=== PATIENT | female | born 1995 | race Hispanic/Latino ===

== ENCOUNTER 2022-12-08 11:43 | Inpatient (IN) | payer SELFPAY ==
--- OUTSIDE RECORDS SUMMARY | 2022-12-08 11:46 | XMS REPORT | Continuity of Care Document ---
:1995 Author Organization [facility] t Address [address] [place] [address] [place] [id number] Care Team Providers Name Role Phone Unavailable Unavailable Unavailable Problems This patient has no known problems. Allergies, Adverse Reactions, Alerts This patient has no known allergies or adverse reactions. Medications This patient has no known medications. Procedures This patient has no known procedures. Encounters Start End Encounter Admission Attending Care Care Encounter Source Date/Time Date/Time Type Type Clinicians Facility Department ID 2022-12-05 2022-12-05 Outpatient MARK FLORES [id number] [place] 13:16:01 13:16:01 [id number] [address] [place] Results This patient has no known results.
[2022-12-08 12:17] LABS: Absolute Lymphocytes (CBC) 1.1 K/uL (0.7-4.9); Hematocrit 47.5 % (36.0-45.0); Lymphocytes % 14.9 % (15.3-44.8); MPV 8.3 fL (7.6-11.3)
[2022-12-08 12:32] LABS: Potassium 3.5 mEq/L (3.5-5.1)
--- NOTE | 2022-12-08 12:39 | RAD REPORT ---
EXAM DESCRIPTION: Guzman Single View12/08/2022 12:34 pm CLINICAL HISTORY: cough, sob, fever COMPARISON: No comparisons TECHNIQUE: Portable AP view of the chest. FINDINGS: Hazy increased density throughout the right mid to lower lung. This could relate to mild c ongestion/ edema versus superimposition of soft tissues. The lungs show no focal airspace opacity oth erwise. No pneumothorax or effusion. The cardiomediastinal contours are unremarkable. IMPRESSION: Hazy increased density throughout the right mid to lower lung as above.
[2022-12-08 12:58] LABS: SARS-CoV-2 Antigen Rapid Res Positive (Negative)
[2022-12-08] MEDS ORDERED: DIAZEPAM 5 MG TABLET ONE (13:15)
[2022-12-08] MEDS ORDERED: NA CHLORIDE 0.9% 1,000 ML ONE (13:15)
--- NOTE | 2022-12-08 13:19 | RAD REPORT ---
EXAM DESCRIPTION: CT - Chest For Pe Angio - 12/08/2022 1:01 pm CLINICAL HISTORY: sob COMPARISON: None. TECHNIQUE: Dynamically enhanced axial 3 mm thick images of the chest were obtained during administra tion of 100 mL Isovue 370 IV contrast. Coronal and oblique reconstruction images were generated and r eviewed. Exam utilizes a protocol for optimal evaluation of pulmonary arterial tree. Maximum intensity projections 3D imaging was utilized All CT scans are performed using dose optimization technique as appropriate and may include automated exposure control or mA/KV adjustment according to patient size. FINDINGS: A pulmonary embolus is not seen. A thoracic aortic aneurysm is not noted. A pleural effusion is not seen. A pericardial effusion is not seen. A lung consolidation is not present. Prominent left lobe liver IMPRESSION: Negative for a pulmonary embolism.
[2022-12-08 13:22] LABS: Albumin 4.2 g/dL (3.4-5.0); Bilirubin Direct 0.2 mg/dL (0-0.2); Bilirubin Indirect, Calculated 0.3 mg/dL (0.2-0.8); Bilirubin Total 0.5 mg/dL (0.2-1.0); Protein, Total 9.1 g/dL (6.4-8.2)
[2022-12-08 13:39] LABS: Specific Gravity > 1.030 (1.005-1.030)
[2022-12-08 13:46] LABS: Calcium Oxalate Crystals- Ur Moderate /HPF (None Seen); Specific Gravity > 1.030 (1.005-1.030); Urine Bacteria 20-50 /HPF (<20); Urine Bilirubin NEGATIVE (Negative); Urine Blood Trace (Negative); Urine Clarity Extremely Turbid (Clear); Urine Color Dark-Yellow (Yellow); Urine Glucose TRACE (Negative); Urine Mucus 4+ /HPF (None Seen); Urine Protein 2+ (Negative); Urine Urobilinogen 1+ (Normal); Urine pH 5.5 (5.0-7.0)
[2022-12-08] MEDS ORDERED: LEVALBUTEROL 1.25 MG/3 ML NEB ONE (14:47)
--- NOTE | 2022-12-08 14:51 | RAD REPORT ---
EXAM DESCRIPTION: US - Abdomen Exam Limited - 12/08/2022 2:42 pm CLINICAL HISTORY: Abdominal pain. COMPARISON: None. FINDINGS: The gallbladder wall is not thickened. A gallstone is not seen. The biliary tree is normal caliber. IMPRESSION: Unremarkable gallbladder ultrasound.
[2022-12-08] MEDS ORDERED: METHYLPREDNISOLONE 125 MG INJ ONE (15:18)
--- NOTE | 2022-12-08 15:50 | ER ---
Nurse's Notes [facility] Name: Edith Pickard Age: 27 yrs Sex: Female : 1995 Arrival Date: 12/08/2022 Time: 11:43 Bed 12 Private MD: Diagnosis: Coronavirus infection, unspecified;Dyspnea Presentation: 12/08 11:54 Chief complaint: Patient states: "I was diagnosed with Bronchitis and I was supposed to ss go back to work today, but I'm still having shortness of breath, diarrhea and vomiting. I want to get tested for covid.". Coronavirus screen: Client denies travel out of the [place] in the last 14 days. Ebola Screen: Patient denies exposure to infectious person. Patient denies travel to an Ebola-affected area in the 21 days before illness onset. Initial Sepsis Screen: Does the patient meet any 2 criteria? No. Patient's initial sepsis screen is negative. Does the patient have a suspected source of infection? No. Patient's initial sepsis screen is negative. Risk Assessment: Do you want to hurt yourself or someone else? Patient reports no desire to harm self or others. Onset of symptoms was December 04, 2022. 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 - mb9 Historical: - Allergies: 11:58 No Known Allergies; ss - Home Meds: 11:58 Cipro Oral [Active]; - PMHx: 11:58 I\\T\\D L breast; Screenin:42 [facility] ED Fall Risk Assessment (Adult) History of falling in the last 3 months, mb9 including since admission No falls in past 3 months (0 pts) Confusion or Disorientation No (0 pts) Intoxicated or Sedated No (0 pts) Impaired Gait No (0 pts) Mobility Assist Device Used No (0 pt) Altered Elimination No (0 pt) Score/Fall Risk Level 0 - 2 = Low Risk Oriented to surroundings, Maintained a safe environment, Educated pt \\T\\ family on fall prevention, incl call for assistance when getting out of bed. Abuse screen: Denies threats or abuse. Nutritional screening: No deficits noted. Tuberculosis screening: No symptoms or risk factors identified. Assessment: 13:41 General: Appears in no apparent distress. Behavior is calm, cooperative. Pain: Denies mb9 pain. Neuro: Level of Consciousness is awake, alert, obeys commands, Oriented to person, place, time, situation, Appropriate for age. Respiratory: Reports shortness of breath cough that is Breath sounds are clear bilaterally. GI: Reports diarrhea. GI: Abdomen is round non-distended, Bowel sounds present X 4 quads. Abd is soft and non tender X 4 quads. Derm: Skin is pink, warm \\T\\ dry. Musculoskeletal: Range of motion: intact in all extremities. 15:41 Reassessment: pt not able to tolerate ambulating. Pt states" I feel SOB and can't catch mb9 my breath." O2 saturation at 95% on RA. 16:25 Reassessment: see [facility] for further charting. mb9 Vital Signs: 11:54 BP 154 / 88; Pulse 106; Resp 18; Temp 98(TE); Pulse Ox 100% on R/A; Weight 99.79 kg; ss Height 5 ft. 2 in. ; Pain 6/10; 14:24 BP 96 / 85; Pulse 84; Resp 18; Pulse Ox 97% on R/A; mb9 15:41 BP 118 / 95; Pulse 95; Resp 22; Pulse Ox 95% on R/A; mb9 11:54 Body Mass Index 40.24 (99.79 kg, 157.48 cm) ss 11:54 Pain Scale: Adult ss ED Course: 11:44 Patient arrived in ED. rg4 11:47 [facility] 11:47 Valerio Muir MD is Attending Physician. [facility] 11:56 Triage completed. ss 11:58 Arm band placed on right wrist. ss 12:12 Inserted saline lock: 20 gauge in left antecubital area, using aseptic technique. Blood rs5 collected. 12:12 Lactate w/ 2H reflex if indic. Sent. rs5 12:12 BMP Sent. rs5 12:12 CBC with Diff Sent. rs5 12:28 SARS RAPID Sent. rs5 12:28 Lactate w/ 2H reflex if indic. Sent. rs5 12:28 Blood Culture Adult (2) Sent. rs5 12:36 Chest Single View XRAY In Process Unspecified. EDMS 12:57 Anabella Nevarez, ASHISH is Primary Nurse. mb9 13:02 CT Chest For PE Angio In Process Unspecified. EDMS 13:42 Bed in low position. Call light in reach. Side rails up X 1. Client placed on mb9 continuous cardiac and pulse oximetry monitoring. NIBP monitoring applied. 13:43 No provider procedures requiring assistance completed. mb9 14:43 US Abdomen Limited In Process Unspecified. EDMS 15:25 Blood Culture Adult (2) Sent. rs5 15:49 Jayme Grewal MD is Hospitalizing Provider. m 17:03 Patient admitted, IV remains in place. mb9 Administered Medications: 13:10 Drug: NS 0.9% IV 1000 ml Route: IV; Rate: 1 bolus; Site: left antecubital; ll1 14:43 Drug: Levalbuterol Inhalation 1.25 mg Route: Inhalation; mb9 15:13 Follow up: Response: No adverse reaction mb9 15:13 Drug: MethylPrednisoLONE IVP 125 mg Route: IVP; Site: left antecubital; mb9 15:41 Follow up: Response: No adverse reaction mb9 16:25 Drug: Paxlovid Dose Pack 300 mg (150 mg x 2)-100 mg (EUA) 300 mg Route: PO; mb9 16:57 Follow up: Response: No adverse reaction mb9 Medication: 13:42 VIS not applicable for this client. mb9 Outcome: 15:49 Decision to Hospitalize by Provider. [facility] 17:03 Admitted to Med/surg via wheelchair, room 222, with chart, Report called to ASHISH Jeffrey mb9 17:03 Condition: stable 17:03 Instructed on the need for admit. 17:15 Patient left the ED. ll1 Signatures: Dispatcher [employer] EDMS Oscar Michelle PA PA jmm Blanchard, Shelby RN Yolis Garza rg4 Darleen Diaz RN RN ll1 Anabella Nevarez RN RN mb9 Isreal Jung rs5 Corrections: (The following items were deleted from the chart) 15:46 15:41 Pulse 95bpm; Resp 22bpm; Pulse Ox 95% RA; mb9 mb9
[2022-12-08] MEDS ORDERED: ONDANSETRON 4 MG/2 ML VIAL IV PRN (15:51)
--- NOTE | 2022-12-08 15:51 | EDPHYS ---
Physician Documentation [facility] Name: Edith Pickard Age: 27 yrs Sex: Female : 1995 Arrival Date: 12/08/2022 Time: 11:43 Bed 12 Private MD: ED Physician Valerio Muir HPI: 12/08 11:53 This 27 yrs old Female presents to ER via Ambulatory with complaints of jmm Diarrhea, Shortness Of Breath. 11:53 The patient presents to the emergency department with nausea, vomiting, diarrhea. jmm Onset: The symptoms/episode began/occurred gradually, 1 week(s) ago. Is a 27-year-old female with no chronic medical conditions presents emerged department with complaints of nausea and vomiting beginning approximately a week ago. That is resolved but since states having increased shortness of breath. Patient was diagnosed with bronchitis this past Sunday. States today that she is unable to walk more than a few feet without becoming very short of breath.. 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 jmm 11:53 Respiratory: Positive for cough, shortness of breath. 11:53 Abdomen/GI: Positive for vomiting, diarrhea. 11:53 All other systems are negative. Exam: 11:53 Constitutional: This is a well developed, well nourished patient who is awake, alert, jmm and in no acute distress. Head/Face: atraumatic. Eyes: EOMI, no conjunctival erythema appreciated ENT: Moist Mucus Membranes Neck: Trachea midline, Supple Chest/axilla: Normal chest wall appearance and motion. Cardiovascular: Regular rate and rhythm. No edema appreciated Respiratory: Normal respirations, no respiratory distress appreciated Abdomen/GI: Non distended Back: Normal ROM Skin: General appearance color normal MS/ Extremity: Moves all extremities, no obvious deformities appreciated, no edema noted to the lower extremities Neuro: Awake and alert Psych: Behavior is normal, Mood is normal, Patient is cooperative and pleasant Vital Signs: 11:54 BP 154 / 88; Pulse 106; Resp 18; Temp 98(TE); Pulse Ox 100% on R/A; Weight 99.79 kg; ss Height 5 ft. 2 in. ; Pain 6/10; 14:24 BP 96 / 85; Pulse 84; Resp 18; Pulse Ox 97% on R/A; mb9 15:41 BP 118 / 95; Pulse 95; Resp 22; Pulse Ox 95% on R/A; mb9 11:54 Body Mass Index 40.24 (99.79 kg, 157.48 cm) ss 11:54 Pain Scale: Adult ss MDM: 11:53 Patient medically screened. [facility] 18:02 Differential diagnosis: Pulmonary embolism, coronavirus, viral pneumonia, bacterial [facility] pneumonia. Data reviewed: vital signs, nurses notes, lab test result(s), radiologic studies, CT scan, plain films. Consideration of Admission/Observation Patient was admitted/placed on observation. Escalation of care including admission/observation considered. Management of patient was discussed with the following: Hospitalist: Dr. Estrada. Counseling: I had a detailed discussion with the patient and/or guardian regarding: the historical points, exam findings, and any diagnostic results supporting the discharge/admit diagnosis, lab results, radiology results, the need for further work-up and treatment in the hospital. ED course: Patient exhibited dyspnea on exertion while ambulating oxygen went down to 93%. We will ops the patient due to worsening coronavirus symptoms. 12/08 11:54 Order name: CBC with Diff; Complete Time: 12:20 [facility] 12/08 11:54 Order name: BMP; Complete Time: 12:34 [facility] 12/08 11:54 Order name: Blood Culture Adult (2) [facility] 12/08 11:54 Order name: Lactate w/ 2H reflex if indic.; Complete Time: 13:21 [facility] 12/08 11:54 Order name: SARS RAPID; Complete Time: 13:00 [facility] 12/08 13:00 Order name: PT-INR [facility] 12/08 13:00 Order name: Hepatic Function; Complete Time: 14:13 [facility] 12/08 13:05 Order name: Urinalysis w/ reflexes; Complete Time: 14:13 [facility] 12/08 13:05 Order name: PREGU; Complete Time: 14:13 [facility] 12/08 15:38 Order name: Lactate Sepsis 2 HR Follow-up; Complete Time: 15:40 [facility] 12/08 15:58 Order name: CBC with Automated Diff EDMS 12/08 15:58 Order name: CBC with Automated Diff [facility] 12/08 15:58 Order name: Comprehensive Metabolic Panel [facility] 12/08 15:58 Order name: Comprehensive Metabolic Panel [facility] 12/08 11:54 Order name: Chest Single View XRAY; Complete Time: 12:42 [facility] 12/08 12:43 Order name: CT Chest For PE Angio; Complete Time: 13:21 [facility] 12/08 14:14 Order name: US Abdomen Limited; Complete Time: 14:55 [facility] 12/08 15:44 Order name: Diet Full Liquid; Complete Time: 15:45 [facility] 12/08 15:58 Order name: Regular [facility] 12/08 11:54 Order name: Saline Lock; Complete Time: 12:12 [facility] 12/08 15:01 Order name: Misc. Order: ambulate patient, o2; Complete Time: 15:41 [facility] Administered Medications: 13:10 Drug: NS 0.9% IV 1000 ml Route: IV; Rate: 1 bolus; Site: left antecubital; ll1 14:43 Drug: Levalbuterol Inhalation 1.25 mg Route: Inhalation; mb9 15:13 Follow up: Response: No adverse reaction mb9 15:13 Drug: MethylPrednisoLONE IVP 125 mg Route: IVP; Site: left antecubital; mb9 15:41 Follow up: Response: No adverse reaction mb9 16:25 Drug: Paxlovid Dose Pack 300 mg (150 mg x 2)-100 mg (EUA) 300 mg Route: PO; mb9 16:57 Follow up: Response: No adverse reaction mb9 Disposition Summary: 12/08/22 15:49 Hospitalization Ordered Hospitalization Status: Observation [facility] Provider: Jayme Grewal Location: Telemetry/MedSurg (observation) jmm Condition: Stable jmm Problem: new jmm Symptoms: are unchanged [facility] Bed/Room Type: Standard [facility] Room Assignment: 222(12/08/22 16:55) dw Diagnosis - Coronavirus infection, unspecified jmm - Dyspnea jmm Forms: - Medication Reconciliation Form jmm - SBAR form [facility] Signatures: Dispatcher [employer] EDCT Brooklyn Wade RN RN Oscar Martin PA PA jmm Blanchard, Shelby, RN RN ss Darleen Diaz RN RN ll1 Anabella Nevarez RN RN mb9 Corrections: (The following items were deleted from the chart) 16:55 15:49 irving diehl
[2022-12-08] MEDS: NA CHLORIDE 0.9% 1,000 ML IV SCH ×2 (16:00→18:06)
[2022-12-08] MEDS: NIRMATRELVIR/RITONAVIR TABLET PO SCH (16:15)
--- NOTE | 2022-12-08 17:14 | P.HP ---
Certification for Inpatient Patient admitted to: Observation With expected LOS: <2 Midnights Practitioner: I am a practitioner with admitting privileges, knowledge of patient current condition, hospital course, and medical plan of care. Services: Services provided to patient in accordance with Admission requirements found in Title 42 Section 412.3 of the Code of Federal Regulations Patient History Date of Service: 12/08/22 Reason for admission: Michael Virus infection History of Present Illness: Patient is 27 years of age became sick on Sunday started having fever chills bod y aches and shortness of breath able to work she went to the urgent care department and was given some antibiotics diagnosed with bronchitis exertion ended up here in the hospital Allergies No Known Allergies Allergy (Unverified 12/08/22 16:55) - Past Medical/Surgical History Past Medical History: Patient denies medical history Past Surgical History: Patient denies surgical history Review of Systems General: Fever, Chills, Weakness Respiratory: Shortness of Breath Gastrointestinal: Vomiting Physical Examination - Vital Signs Temperature: 98 F Blood Pressure: 154/88 Pulse: 106 Respirations: 18 Pulse Ox (%): 98 - Physical Exam General: Alert, In no apparent distress, Oriented x3 Neck: Supple Respiratory: Clear to auscultation bilaterally Cardiovascular: No edema, Regular rate/rhythm, Normal S1 S2 Gastrointestinal: Normal bowel sounds, Non-distended Musculoskeletal: No clubbing, No swelling, No contractures - Studies Laboratory Data (last 24 hrs) 12/08/22 12:07: Total Bilirubin 0.5, AST 334 H, ALT 252 H, Alkaline Phosphatase 79 12/08/22 12:07: Sodium 137, Potassium 3.5, BUN 10, Creatinine 0.96, Glucose 111 H 12/08/22 12:07: WBC 7.30, Hgb 16.1 H, Hct 47.5 H, Plt Count 238 Assessment and Plan - Problems (Diagnosis) (1) Coronavirus infection, unspecified Current Visit: Yes Status: Acute Plan: Patient is 27 years of age has been sick since Sunday complaining of fever chills body ache nausea vomiting work-up is essentially negative she does seem to have a mild hepatitis globin is mildly elevated is probably little dehydrated. There is no evidence of thromboembolism she is positive for coronavirus infection plan to start her on some steroids Paxlovid IV hydration abdominal ultrasound is also negative we will check a hepatitis profile chest x- ray unable to view report suggest some haziness there is no evidence of any pneumonia on her CT angiogram (2) Hepatitis Current Visit: Yes Status: Acute - Plan Patient has abnormal liver function tests monitor liver function test may be related to the acute viral infection have also ordered a hepatitis panel - Advance Directives Does patient have a Living Will: No Does patient have a Durable POA for Healthcare: No
[2022-12-08] MEDS ORDERED: ACETAMINOPHEN 325 MG TABLET PO PRN (17:17)
[2022-12-08] MEDS: ENOXAPARIN 40 MG/0.4 ML SQ SCH (18:05)
[2022-12-08 18:16] VITALS: BMI 39.4
[2022-12-08] MEDS: IPRATROPIUM BROM 0.5MG/2.5ML NEB SCH (19:55)
[2022-12-08] MEDS: dexAMETHasone 4 MG/ML VIAL IV SCH (20:26)
[2022-12-08 20:52] LABS: Protime INR 0.91
[2022-12-08 21:49] LABS: Hepatitis B Core IgM Nonreactive (Nonreactive); Hepatitis B surface AG Interp. Nonreactive (Nonreactive); Hepatitis C Virus Ab Nonreactive (Nonreactive)
[2022-12-09] MEDS: IPRATROPIUM BROM 0.5MG/2.5ML NEB SCH ×4 (01:35→20:00)
[2022-12-09 03:20] LABS: Absolute Lymphocytes (CBC) 0.5 K/uL (0.7-4.9); Hematocrit 42.8 % (36.0-45.0); Lymphocytes % 16.6 % (15.3-44.8); MCV 98.2 fL (80-100); MPV 8.6 fL (7.6-11.3); RBC Red Blood Cell Count 4.36 M/uL (3.86-4.86)
[2022-12-09 03:37] LABS: Albumin 3.7 g/dL (3.4-5.0); Bilirubin Total 0.4 mg/dL (0.2-1.0); Protein, Total 8.3 g/dL (6.4-8.2)
[2022-12-09 03:38] LABS: Potassium 4.1 mEq/L (3.5-5.1)
[2022-12-09] MEDS: NA CHLORIDE 0.9% 1,000 ML IV SCH ×3 (04:28→14:35)
[2022-12-09] MEDS: NIRMATRELVIR/RITONAVIR TABLET PO SCH ×2 (08:28→20:26)
[2022-12-09] MEDS: dexAMETHasone 4 MG/ML VIAL IV SCH ×2 (08:29→20:26)
[2022-12-09] MEDS: ENOXAPARIN 40 MG/0.4 ML SQ SCH (08:29)
[2022-12-10] MEDS: NA CHLORIDE 0.9% 1,000 ML IV SCH ×2 (01:45→11:23)
[2022-12-10] MEDS: IPRATROPIUM BROM 0.5MG/2.5ML NEB SCH ×2 (01:50→08:40)
[2022-12-10] MEDS: dexAMETHasone 4 MG/ML VIAL IV SCH (08:05)
[2022-12-10] MEDS: NIRMATRELVIR/RITONAVIR TABLET PO SCH (08:06)
[2022-12-10] MEDS: ENOXAPARIN 40 MG/0.4 ML SQ SCH (08:06)
[2022-12-10 08:42] VITALS: BP 113/65; TEMP 97
[2022-12-10 10:19] VITALS: O2SAT 97
== END 2022-12-10 13:21 | disposition home or self-care (01) | DRG 178 ==
LOC: ER 11:43 → ERHOLD 15:52 → 2ND 17:04
PROVIDERS: ADMIT Internal Medicine Sleep Medicine; ATTEND Hospitalist
DX: U07.1 COVID-19 (principal); B17.9 Acute viral hepatitis, unspecified; E86.0 Dehydration
CPT/HCPCS: 36415; 71045; 71275; 76705; 80048; 80053; 80074; 80076; 81001; 81025; 83605; 85025; 85610; 87040; 87811; 94640; 96374; 99285; J1100; J1650; J2930; J7030; J7614; J7644; J8499; Q9967